=== PATIENT | male | born 1980 | race Caucasian/White ===

== ENCOUNTER 2019-11-05 19:25 | Emergency (ER) | payer OTHER, SELFPAY ==
[~2019-11-05] VITALS: Ht 175.3 cm; Wt 127.0 kg
[2019-11-05 20:08] VITALS: BP 147/73
[2019-11-05] MEDS ORDERED: KETOROLAC 60 MG/2 ML VIAL IM ONE (20:35)
[2019-11-05 21:11] VITALS: BP 147/73
== END 2019-11-05 21:11 | disposition home or self-care (01) ==
LOC: EEVIPCON 19:25 → MED 19:25
DX: U07.1 COVID-19 (principal); S39.012A Strain of muscle, fascia and tendon of lower back, initial encounter; M54.30 Sciatica, unspecified side; X58.XXXA Exposure to other specified factors, initial encounter; Y93.89 Activity, other specified; Y92.89 Other specified places as the place of occurrence of the external cause; Y99.8 Other external cause status
CPT/HCPCS: 99283; U0003

== ENCOUNTER 2021-04-02 19:07 | Emergency (ER) | payer OTHER, SELFPAY ==
[~2021-04-02] VITALS: Ht 175.3 cm; Wt 110.7 kg
[2021-04-02 19:31] VITALS: BP 154/78
[2021-04-02] MEDS ORDERED: IBUPROFEN 600 MG TAB PO ONE (21:15)
[2021-04-02] MEDS ORDERED: IBUP-2213 PO (21:42)
== END 2021-04-02 21:53 | disposition home or self-care (01) ==
LOC: MED 19:07
DX: S76.912A Strain of unspecified muscles, fascia and tendons at thigh level, left thigh, initial encounter (principal); H57.12 Ocular pain, left eye; E11.9 Type 2 diabetes mellitus without complications; I10 Essential (primary) hypertension; V89.2XXA Person injured in unspecified motor-vehicle accident, traffic, initial encounter; Y93.89 Activity, other specified; Y92.89 Other specified places as the place of occurrence of the external cause; Y99.8 Other external cause status
CPT/HCPCS: 99283